=== PATIENT | female | born 1965 | race Caucasian/White ===

== ENCOUNTER 2016-06-11 22:25 | Emergency (ER) | payer OTHER ==
[~2016-06-11] VITALS: Ht 165.1 cm; Wt 110.6 kg
[2016-06-11 22:29] VITALS: BP 111/70; PULSE 78; RESP 14; TEMP 98; O2SAT 98
[2016-06-11 22:37] VITALS: BP 111/70; PULSE 78; RESP 14; TEMP 98; O2SAT 98
[2016-06-11] MEDS ORDERED: NEUR800T PO (22:42)
[2016-06-11] MEDS ORDERED: PIOG30TA4 PO (22:42)
--- NOTE | 2016-06-11 22:56 | PD ---
HPI Chief Complaint: Bleeding Time Seen by Provider: 22:33 Travel History International Travel<30 days: No Contact w/Intl Traveler<30days: No Traveled to known affect area: No History of Present Illness HPI This 51-year-old female is complaining of bleeding from a varicose pain. She neck to herself while shaving several hours ago. She has had some persistent bleeding times. She is not on blood thinners. PFSH Past Medical History Diabetes: Yes Patient Takes Glucophage: No Tetanus Vaccination: < 5 Years Influenza Vaccination: Yes ?: Not Menopausal: Yes : 2 Para: 2 Tubal Ligation: Yes Past Surgical History Appendectomy: Yes (AGE 22) Section: Yes (X2) Social History Alcohol Use: Yes ("OCCASIONALLY") Tobacco Use: No (QUIT APRIL 2016) Substance Use: No Allergies-Medications (Allergen,Severity, Reaction): Coded Allergies: No Known Allergies (Unverified , 06/11/16) Reported Meds & Prescriptions Reported Meds & Active Scripts Active Reported Neurontin (Gabapentin) 800 Mg Tab 2,400 Mg PO BID Pioglitazone (Pioglitazone HCl) 30 Mg Tab 30 Mg PO DAILY Review of Systems General / Constitutional: No: Fever, Chills HENT: No: Headaches Respiratory: No: Cough Genitourinary: No: Urgency, Frequency Skin: No Rash Physical Exam Narrative GENERAL: Well-developed female SKIN: Focused skin assessment warm/dry. HEAD: Atraumatic. Normocephalic. EYES: Pupils equal and round. No scleral icterus. No injection or drainage. ENT: No nasal bleeding or discharge. Mucous membranes pink and moist. NECK: Trachea midline. No JVD. MUSCULOSKELETAL: No obvious deformities. No clubbing. No cyanosis. No edema. On the right leg there is a dressing. There is a varicose vein visible which is incontinent. It is not actively bleeding at this time. NEUROLOGICAL: Awake and alert. No obvious cranial nerve deficits. Motor grossly within normal limits. Normal speech. PSYCHIATRIC: Appropriate mood and affect; insight and judgment normal. Data Data Last Documented VS Vital Signs Date Time Temp Pulse Resp B/P Pulse Ox O2 Delivery O2 Flow Rate FiO2 06/11/16 22:37 98.0 78 14 111/70 98 MDM Medical Decision Making Medical Screen Exam Complete: Yes Emergency Medical Condition: Yes Medical Record Reviewed: Yes Differential Diagnosis Differential includes bleeding from varicose vein, Narrative Course The patient is not bleeding at the time of arrival. Reportedly her of Dermabond over the area. Will be redressed will be advised to elevate and avoid weightbearing Diagnosis Primary Impression: Bleeding from varicose vein Qualified Code: I83.892 - Bleeding from varicose vein, left Additional Instructions: Keep leg elevated Disposition: 01 DISCHARGE HOME Condition: Stable Ernesto Barnett MD Jun 11, 2016 22:56
== END 2016-06-11 23:51 | disposition home or self-care (01) ==
LOC: PHED 22:25
DX: I83.891 Varicose veins of right lower extremity with other complications (principal); E11.9 Type 2 diabetes mellitus without complications
CPT/HCPCS: 12001